=== PATIENT | female | born 1985 | race American Indian/Alaskan Native ===

== ENCOUNTER 2020-03-28 12:43 | Emergency (ER) | payer MEDICAID ==
[2020-03-28 12:58] VITALS: BP 137/94
--- NOTE | 2020-03-28 12:59 | Emergency Department Report ---
ED HPI - General Stated complaint: BAD CRAMPS Time Seen by Provider: 03/28/20 12:56 - History of Present Illness Initial comments: 34-year-old -[place] female patient presents with complaints of abdominal cramping and burning urination x1 day. She states she is 9 weeks and is currently following with [facility]. She is G1, P0 AB 0. She denies any vaginal bleeding, nausea/vomiting/diarrhea, constipation, hematochezia/melena, chest pain, shortness of breath, swelling, or fever/chills/sweats. Patient rates her current pain as a 6/10 in severity and describes it as cramping. She denies any other prior medical history - Related Data Allergies Allergy/AdvReac Type Severity Reaction Status Date / Time No Known Allergies Allergy Unverified 03/28/20 12:57 ED Review of Systems ROS: Stated complaint: BAD CRAMPS Other details as noted in HPI Constitutional: denies: chills, diaphoresis, fever, malaise, weakness ENT: denies: throat pain Respiratory: denies: cough, shortness of breath Cardiovascular: denies: chest pain Gastrointestinal: abdominal pain. denies: nausea, vomiting, diarrhea, constipation, hematemesis, melena, hematochezia Genitourinary: dysuria, frequency. denies: hematuria, discharge, abnormal menses, dyspareunia Skin: denies: rash, change in color Neurological: denies: headache Hematological/Lymphatic: denies: easy bleeding, swollen glands ED Physical Exam - General General appearance: alert, in no apparent distress - Head Head exam: Present: atraumatic, normocephalic - Eye Eye exam: Present: normal appearance. Absent: scleral icterus - Neck Neck exam: Present: normal inspection - Respiratory Respiratory exam: Present: normal lung sounds bilaterally. Absent: respiratory distress - Cardiovascular Cardiovascular Exam: Present: regular rate, normal rhythm - GI/Abdominal GI/Abdominal exam: Present: soft, tenderness (Mild suprapubic), normal bowel sounds. Absent: distended, guarding, rebound, rigid - Back Exam Back exam: Present: full ROM. Absent: CVA tenderness (R), CVA tenderness (L) - Neurological Exam Neurological exam: Present: alert, oriented X3, normal gait - Psychiatric Psychiatric exam: Present: normal affect, normal mood - Skin Skin exam: Present: warm, dry, intact, normal color. Absent: rash, cyanosis, diaphoretic ED Course Vital Signs 03/28/20 12:55 Temperature 97.6 F Pulse Rate 83 Respiratory 20 Rate Blood Pressure 137/94 O2 Sat by Pulse 100 Oximetry ED Medical Decision Making - Lab Data Result diagrams: 03/28/20 13:01 03/28/20 13:01 - Radiology Data Radiology results: report reviewed EMBRYO/FETUS: 6 mm soft tissue density anterior to the pole reported by the injection molding technician is likely normal midgut herniation for this stage of . - [place]-Rump Length = 1.9 cm = 8 weeks. 3 days - Heart Rate, beats per minute (if present) = 165 ADNEXA: 2.4 cm right corpus luteal cyst. FREE FLUID: None. ADDITIONAL FINDINGS: None. IMPRESSION: 1. Single, living intrauterine with estimated sonographic age of 8 weeks. 3 days. 2. midgut herniation is noted which is a normal finding for this stage of gestation, normally resolving by 12 weeks gestation. Follow-up ultrasound between 13 -15 weeks gestation is recommended to ensure resolution. - Medical Decision Making 34-year-old -[place] female patient presents with complaints of abdom inal cramping and burning urination x1 day. She states she is 9 weeks and is currently following with [facility]. She is G1, P0 AB 0. She denies any vaginal bleeding, nausea/vomiting/diarrhea, constipation, hematochezia/melena, chest pain, shortness of breath, swelling, or fever/chills/sweats. Patient rates her current pain as a 6/10 in severity and describes it as cramping. She denies any other prior medical history No significant abnormalities noted on CBC or CMP. UA is normal. 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 She is well-appearing, she denies any pain, she is stable for discharge home. Also discussed recheck of diastolic blood pressure with [facility].. Discussed strict return precautions with patient in detail, she v erbalized understanding peer Critical care attestation.: If time is entered above; I have spent that time in minutes in the direct care of this critically ill patient, excluding procedure time. ED Disposition Clinical Impression: 12 weeks gestation of Abdominal pain in Qualifiers: Trimester: first trimester Qualified Code(s): O26.891 - Other specified related conditions, first trimester Disposition: DC-01 TO HOME OR SELFCARE Is pt being admited?: No Condition: Stable Instructions: Abdominal Pain During Additional Instructions: Please follow-up with your [facility] for repeat of your ultrasound at 15-week Referrals: PRIMARY CARE, [Primary Care Provider] - 3-5 Days
[2020-03-28 14:38] LABS: Basophils % (Auto) 0.5 % (0.0-1.8); Eosinophils # (Auto) 0.1 K/mm3 (0.0-0.4); Eosinophils % (Auto) 0.8 % (0.0-4.3); Hemoglobin 12.7 gm/dl (10.1-14.3); Lymphocytes % (Auto) 27.2 % (13.4-35.0); Mean Corpuscular HGB Conc 34 % (30-34); Mean Corpuscular Volume 97 fl (79-97); Monocytes # (Auto) 0.7 K/mm3 (0.0-0.8); Monocytes % (Auto) 8.9 % (0.0-7.3); Platelet Count 315 K/mm3 (140-440); Red Blood Count 3.92 M/mm3 (3.65-5.03); Red Cell Distribution Width 12.9 % (13.2-15.2)
--- NOTE | 2020-03-28 14:47 | Ultrasound Report ---
ULTRASOUND OBSTETRIC INDICATION / CLINICAL INFORMATION: pain, 9 weeks . Clinical Gestational Age (GA): 8 weeks 3.days TECHNIQUE: Transvaginal. COMPARISON: None available. FINDINGS: GESTATIONAL SAC: Well-defined oval shape and intrauterine in location. YOLK SAC: No significant abnormality. EMBRYO/FETUS: 6 mm soft tissue density anterior to the pole reported by the ultrasound technici an is likely normal midgut herniation for this stage of . - [place]-Rump Length = 1.9 cm = 8 weeks. 3 days - Heart Rate, beats per minute (if present) = 165 ADNEXA: 2.4 cm right corpus luteal cyst. FREE FLUID: None. ADDITIONAL FINDINGS: None. IMPRESSION: 1. Single, living intrauterine with estimated sonographic age of 8 weeks. 3 days. 2. midgut herniation is noted which is a normal finding for this stage of gestation, normally r esolving by 12 weeks gestation. Follow-up ultrasound between 13 -15 weeks gestation is recommended to ensure resolution. Signer Name: Flaquito Qureshi MD Signed: 03/28/2020 2:42 PM Workstation Name: [id number]
--- NOTE | 2020-03-28 14:47 | Ultrasound Report ---
ULTRASOUND OBSTETRIC INDICATION / CLINICAL INFORMATION: pain, 9 weeks . Clinical Gestational Age (GA): 8 weeks 3.days TECHNIQUE: Transvaginal. COMPARISON: None available. FINDINGS: GESTATIONAL SAC: Well-defined oval shape and intrauterine in location. YOLK SAC: No significant abnormality. EMBRYO/FETUS: 6 mm soft tissue density anterior to the pole reported by the ultrasound technici an is likely normal midgut herniation for this stage of . - [place]-Rump Length = 1.9 cm = 8 weeks. 3 days - Heart Rate, beats per minute (if present) = 165 ADNEXA: 2.4 cm right corpus luteal cyst. FREE FLUID: None. ADDITIONAL FINDINGS: None. IMPRESSION: 1. Single, living intrauterine with estimated sonographic age of 8 weeks. 3 days. 2. midgut herniation is noted which is a normal finding for this stage of gestation, normally r esolving by 12 weeks gestation. Follow-up ultrasound between 13 -15 weeks gestation is recommended to ensure resolution. Signer Name: Flaquito Qureshi MD Signed: 03/28/2020 2:42 PM Workstation Name: [id number]
[2020-03-28 15:03] LABS: Alanine Aminotransferase 10 units/L (7-56); Albumin 3.9 g/dL (3.9-5); Blood Urea Nitrogen 6 mg/dL (7-17); Calcium 8.7 mg/dL (8.4-10.2); Hemolysis Index 15
[2020-03-28 15:09] LABS: BUN/Creatinine Ratio 10
[2020-03-28 15:21] LABS: Bacteria,Urine 1+ /HPF (Negative); Bilirubin,Urine NEG (Negative); Blood,Urine NEG (Negative); Color,Urine Yellow (Yellow); Mucus,Urine 3+ /HPF; Protein,Urine <15 mg/dL mg/dL (Negative); Urobilinogen,Urine < 2.0 mg/dL (<2.0)
== END 2020-03-28 16:57 | disposition home or self-care (01) ==
LOC: ED 12:43
DX: O26.891 Other specified pregnancy related conditions, first trimester (principal); R10.9 Unspecified abdominal pain; Z3A.12 12 weeks gestation of pregnancy
CPT/HCPCS: 36415; 76801; 76817; 80053; 81001; 84702; 85025